=== PATIENT | female | born 1990 ===

== ENCOUNTER 2020-08-11 14:35 | Inpatient (IN) | payer OTHER ==
[2020-08-11] MEDS ORDERED: LACTATED RINGERS 1,000 ML ONE (16:15)
[2020-08-11] MEDS ORDERED: BUTORPHANOL 2 MG/1 ML INJ IV PRN (16:28)
[2020-08-11] MEDS ORDERED: LIDOCAINE (2%) 20 MG/1 ML VIAL 20 ML MDV INFILTRATI SCH (16:28)
[2020-08-11] MEDS ORDERED: ONDANSETRON 4 MG/2 ML INJ IV PRN (16:28)
[2020-08-11] MEDS ORDERED: TERBUTALINE 1 MG/1 ML INJ SUB-Q PRN (16:28)
[2020-08-11] MEDS ORDERED: ePHEDrine SULFATE 50 MG/1 ML INJ IV PRN (16:28)
[2020-08-11] MEDS ORDERED: MINERAL OIL 30 ML ORAL LIQD PO PRN (16:28)
[2020-08-11] MEDS ORDERED: fentaNYL 100 MCG/2 ML INJ IV PRN (16:28)
--- NOTE | 2020-08-11 16:38 | History and Physical Report ---
History of Present Illness Date of examination: 08/11/20 Date of admission: 08/11/2020 Chief complaint: Active labor History of present illness: 30yo, @ 39.1 wks, initiated care with [facility] at 14.3 wks gestation. Her has been uncomplicated. She reports to [facility] with reports of frequent painful ctxs. She reports + FM. Denies any VB or LOF. Labs: O+, antibody negative; PAP normal; VDRL negative; rubella immune; HBsAg negative; HIV negative; GC/Chlamydia negative; MSAFP/Multiple margers negative; 1hr gtt - 120; GBS negative. Past History Past Medical History: no pertinent history Past Surgical History: no surgical history Family/Genetic History: none Social history: , lives with family, full code. denies: smoking, alcohol abuse, prescription drug abuse, IV drug use - Obstetrical History Expected Date of Delivery: 08/17/20 Actual Gestation: 39 Week(s) 1 Day(s) : 6 Para: 4 Hx # Term Pregnancies: 4 Number of Pregnancies: 0 Spontaneous Abortions: 1 Induced : 0 Number of Living Children: 4 #1 year: 2,009 (SAB) Gestational age at delivery: 5 #2 Gender: Male year: 2,010 Birthweight: 3.175 kg Method of Delivery: Vaginal Gestational age at delivery: 40 Complications: none #3 Infant Gender: Male year: 2,011 Birthweight: 3.629 kg Method of Delivery: Vaginal Gestational age at delivery: 40 Complications: none #4 Infant Gender: Female year: 2,014 Birthweight: 3.402 kg Method of Delivery: Vaginal Gestational age at delivery: 40 Complications: none #5 Infant Gender: Female year: 2,018 Birthweight: 3.175 kg Method of Delivery: Vaginal Gestational age at delivery: 40 Complications: none Medications and Allergies Allergies Allergy/AdvReac Type Severity Reaction Status Date / Time No Known Allergies Allergy Unverified 08/11/20 15:01 Active Meds: Active Medications Butorphanol Tartrate (Butorphanol 2 Mg/1 Ml Inj) 2 mg IV Q2H PRN PRN Reason: Pain , Severe (7-10) Ephedrine Sulfate (Ephedrine Sulfate 50 Mg/1 Ml Inj) 10 mg IV Q2M PRN PRN Reason: Hypotension Fentanyl (Fentanyl 100 Mcg/2 Ml Inj) 100 mcg IV Q2H PRN PRN Reason: Pain,Severe (7-10) LABOR PAIN Lactated Ringer's (Lactated Ringers) 1,000 mls @ 125 mls/hr IV DIRECT CHARIS Oxytocin/Sodium Chloride (Pitocin/Ns 30 Unit/500ml) 30 units in 500 mls @ 40 mls/hr IV TITR CHARIS; Protocol Lidocaine (Lidocaine (2%) 20 Mg/1 Ml Vial 20 Ml Mdv) 20 ml INFILTRATI ONCE ONE Stop: 08/11/20 16:29 Mineral Oil (Mineral Oil 30 Ml Oral Liqd) 30 ml PO QHS PRN PRN Reason: Constipation Ondansetron HCl (Ondansetron 4 Mg/2 Ml Inj) 4 mg IV Q8H PRN PRN Reason: Nausea And Vomiting Terbutaline Sulfate (Terbutaline 1 Mg/1 Ml Inj) 0.25 mg SUB-Q ONCE PRN PRN Reason: Hyperstimulation/Hypertonicity Review of Systems All systems: negative Genitourinary: contractions - Vital Signs Vital signs: Vital Signs Temp Pulse Resp BP Pulse Ox 98.1 F 67 18 124/76 97 08/11/20 15:07 08/11/20 15:07 08/11/20 15:07 08/11/20 15:07 08/11/20 15:07 Temp Pulse Resp BP Pulse Ox 98.1 F 73 18 124/76 100 08/11/20 15:07 08/11/20 16:18 08/11/20 15:07 08/11/20 15:21 08/11/20 16:18 - Physical Exam Breasts: Positive: normal Cardiovascular: Regular rate Lungs: Positive: Normal air movement Abdomen: Positive: other (gravid) Uterus: Positive: enlarged (S=D) - Obstetrical FHR: category 1 Uterine Contraction Monitor Mode: External Cervical Dilatation: 9 (vertex) Cervical Effacement Percentage: 90 station: -1 Uterine Contraction Frequency (min): 4-5 Uterine Contraction Pattern: Irregular Uterine Tone Measurement Phase: Resting Uterine Contraction Intensity: Moderate Results All other labs normal. Assessment and Plan - Patient Problems (1) Active labor at term Current Visit: Yes Status: Acute Plan to address problem: Admit to L & D AROM @ 1651, blood-tinged fluids Pain meds as desired per orders Anticipate
[2020-08-11] MEDS ORDERED: OXYTOCIN DRIP 30 UNITS/500 ML BAG IV SCH (17:00)
[2020-08-11 17:18] LABS: Hematocrit 40.3 % (30.3-42.9); Hemoglobin 13.7 gm/dl (10.1-14.3); Mean Corpuscular HGB Conc 34 % (30-34); Mean Corpuscular Volume 88 fl (79-97); Platelet Count 152 K/mm3 (140-440); Red Cell Distribution Width 14.2 % (13.2-15.2)
[2020-08-11] MEDS ORDERED: WITCH HAZEL/ GLYCERIN PAD TP PRN (17:24)
[2020-08-11] MEDS ORDERED: MAGNESIUM HYDROXIDE (MOM) ORAL LIQD UDC PO PRN (17:24)
[2020-08-11] MEDS ORDERED: diphenhydrAMINE 25 MG CAP PO PRN (17:24)
[2020-08-11] MEDS ORDERED: PROMETHAZINE 25 MG TAB PO PRN (17:24)
[2020-08-11] MEDS ORDERED: LANOLIN/ZINC/DIMETHICONE (LANSINOH) 7 GM TP PRN (17:24)
[2020-08-11] MEDS ORDERED: LACTATED RINGERS 1,000 ML IV SCH (17:30)
--- NOTE | 2020-08-11 17:35 | Procedure Note ---
OB Delivery Note - Delivery Date of Delivery: 08/11/20 (0963) Surgeon: MEHREEN LOCKHART (CNM) Estimated blood loss: 100cc - Vaginal Delivery presentation: vertex Delivery position: OA (CARTER) Intrapartum events: precipitous labor- <3hr Delivery induction: none Delivery augmentation: rupture of membranes (AROM @ 1651, clear fluids) Delivery monitor: external FHT, external uterine Route of delivery: Delivery placenta: spontaneous (1716, reid, disposed per hospital policy) Delivery cord: 3 umbilical vessels Episiotomy: none Delivery laceration: none Anesthesia: none Delivery comments: of viable, crying male placed directly on maternal abdomen. Cord double clamped, cut by FOB after cessation of pulsation. Placental spontaneously delivered, disposed. Uterus firm @ U-2, hemostasis maintained. Perineum intact. Mother and baby safe, stable and left in care of RN. - Infant A at 1 minute: 9 at 5 minutes: 9 Infant Gender: Male (Weight: 3255gms (7lbs 3ozs) 19 inches)
[2020-08-11] MEDS: IBUPROFEN 600 MG TAB PO SCH (18:47)
[2020-08-12] MEDS: IBUPROFEN 600 MG TAB PO SCH ×3 (00:04→12:43)
[2020-08-12] MEDS: oxyCODONE /ACETAMINOPHEN 5-325MG TAB PO PRN ×2 (04:02→10:15)
[2020-08-12 04:33] LABS: Hematocrit 35.1 % (30.3-42.9); Hemoglobin 11.8 gm/dl (10.1-14.3)
[2020-08-12] MEDS ORDERED: PRENATAL VIT27-FE FUMARATE-FOLIC ACID VIT TAB PO SCH (10:00)
--- NOTE | 2020-08-12 11:57 | Progress Note ---
Assessment and Plan A: Day 1 Stable P: Follow routine orders Discharge today Return to office in 6 weeks Subjective - Subjective Date of service: 08/12/20 Principal diagnosis: s/p Patient reports: appetite normal, voiding normally, pain well controlled, flatus, bowel movement, ambulating normally [place]: doing well, bottle feeding Objective - Vital Signs Latest vital signs: Vital Signs Temp Pulse Resp BP BP Pulse Ox 08/12/20 10:15 18 08/12/20 08:23 97.6 F 62 18 117/68 100 08/12/20 05:23 97.5 F L 62 18 112/73 97 08/12/20 01:27 98.0 F 60 18 124/80 99 08/11/20 19:25 98.4 F 77 20 117/70 08/11/20 18:40 65 129/72 08/11/20 18:29 71 99 08/11/20 18:25 71 128/68 08/11/20 18:24 72 99 08/11/20 18:19 83 100 08/11/20 18:14 76 100 08/11/20 18:10 77 131/67 08/11/20 18:09 80 100 08/11/20 18:04 68 99 08/11/20 17:59 87 99 08/11/20 17:55 65 136/62 08/11/20 17:54 66 99 08/11/20 17:49 98.5 F 71 17 100 08/11/20 17:44 72 100 08/11/20 17:40 65 130/76 08/11/20 17:39 63 100 08/11/20 17:34 62 100 08/11/20 17:29 61 100 08/11/20 17:25 77 135/80 08/11/20 17:24 67 100 08/11/20 17:19 75 100 08/11/20 17:14 71 100 08/11/20 17:12 99 H 89 08/11/20 17:09 94 H 100 08/11/20 17:04 78 100 08/11/20 16:59 78 100 08/11/20 16:55 74 135/68 100 08/11/20 16:49 87 100 08/11/20 16:44 69 99 08/11/20 16:39 73 100 08/11/20 16:37 73 126/76 08/11/20 16:18 73 100 08/11/20 16:03 77 100 08/11/20 15:58 74 100 08/11/20 15:53 76 100 08/11/20 15:48 69 98 08/11/20 15:43 68 99 08/11/20 15:38 72 99 08/11/20 15:33 75 99 08/11/20 15:28 73 99 08/11/20 15:23 73 99 08/11/20 15:21 67 124/76 08/11/20 15:07 98.1 F 67 18 124/76 97 Intake and Output 08/11/20 08/12/20 08/12/20 22:59 06:59 14:59 Intake Total 360 240 Output Total 1200 1100 Balance -1200 -740 240 Intake: Oral 360 240 Output: Urine 1200 1100 Void 1200 1100 Other: Total, Intake Amount 240 240 Total, Output Amount 600 600 # Voids Void 1 1 Weight 76.204 kg Estimated Blood Loss 100 - Exam Breasts: Present: normal Cardiovascular: Present: Regular rate, Normal S1, Normal S2 Lungs: Present: Clear to auscultation, Normal air movement Abdomen: Present: normal appearance, soft, normal bowel sounds Uterus: Present: normal, firm, fundal height below umbilicus Extremities: Present: normal
--- NOTE | 2020-08-12 11:59 | Discharge Summary ---
Providers - Providers Date of Admission: 08/11/20 16:35 Date of discharge: 08/12/20 Attending physician: JENISE LOPEZ JR, MD Primary care physician: JENISE LOPEZ JR, MD Hospitalization Reason for admission: active labor Delivery: Episiotomy: none Laceration: none Other procedures: none complications: none Discharge diagnosis: IUP at term delivered baby: male Condition at discharge: Good Disposition: DC-01 TO HOME OR SELFCARE Plan - Provider Discharge Summary Activity: routine, no sex for 6 weeks, no heavy lifting 4 weeks, no strenuous exercise Diet: routine Instructions: routine Additional instructions: [] Smoking cessation referral if applicable(refer to patient education folder for contact #) [] Refer to [facility]'s [facility] Booklet Call your doctor immediately for: * Fever > 100.5 * Heavy vaginal bleeding ( >1 pad per hour) * Severe persistent headache * Shortness of breath * Reddened, hot, painful area to leg or breast * Drainage or odor from incision. * Keep incision clean and dry at all times and follow doctor's instructions regarding bathing/showering - Follow up plan Follow up: JENISE LOPEZ JR, MD [Primary Care Provider] - 6 Weeks
[2020-08-12 18:12] VITALS: BP 120/74
== END 2020-08-12 17:40 | disposition home or self-care (01) | DRG 807 ==
LOC: TRG 14:35 → APU 14:36 → TRG 16:34 → LD 16:35 → OB 19:15
PROVIDERS: ADMIT Obstetrics & Gynecology; ATTEND Obstetrics & Gynecology
PROC: 10E0XZZ Delivery of Products of Conception, External Approach (ICD-10-PCS; principal; 2020-08-11)
PROC: 10907ZC Drainage of Amniotic Fluid, Therapeutic from Products of Conception, Via Natural or Artificial Opening (ICD-10-PCS; 2020-08-11)
DX: O62.3 Precipitate labor (principal); Z37.0 Single live birth; Z3A.39 39 weeks gestation of pregnancy; Z20.822 Contact with and (suspected) exposure to COVID-19
CPT/HCPCS: 36415; 59025; 85014; 85018; 85027; 86850; 86900; 86901; 96360; G0378; J2590; J7120; U0003